=== PATIENT | male | born 2000 | race Caucasian/White ===

== ENCOUNTER → 2020-11-13 16:17 | Outpatient (CLI) | payer OTHER, SELFPAY ==
--- NOTE | 2020-11-13 16:18 | DI.MRI.S_ITS ---
PROCEDURE: MR SHOULDER LT WO CON INDICATIONS: PAIN IN LEFT SHOULDER TECHNIQUE: Noncontrast oblique coronal T2 fast spin echo with fat saturation, oblique sagittal T1 spin echo and T2 fast spin echo with fat saturation, axial T1 spin echo and T2 fast spin echo with fat saturation through the shoulder. COMPARISON: None. FINDINGS: Image quality: Excellent. Rotator cuff: Tendinosis and very low-grade articular surface partial-thickness tear involving distal supraspinatus at its insertion on the humeral head is seen. Distal infraspinatus and subscapularis are intact. Sagittal images demonstrate no muscle atrophy. Bones and bursae: There is marrow edema and cortical deformity involving posterior lateral humeral head suggestive of a Hill-Sachs fracture. No corresponding Bankart fracture is seen. No acromioclavicular joint degeneration. The acromion demonstrates conventional anatomy, without an os acromiale. No pathologic subacromial-subdeltoid or subcoracoid bursal fluid is present. Capsule and soft tissues: There is signal abnormality and contour irregularity involving anterior inferior labrum at 5 to 6 o'clock position suggestive of anterior-inferior labral tear. The long head of the biceps tendon demonstrates normal location and morphology. The rotator interval appears normal, without fibrosis. The coracohumeral ligament is normal in thickness. IMPRESSION: 1. Suggestion of acute to subacute appearing Hill-Sachs fracture involving humeral head. No Bankart fracture is noted. 2. Suggestion of anterior-inferior labral tear at 5 to 6 o'clock position consistent with a Bankart lesion. 3. Tendinosis and very low-grade articular surface partial-thickness tear involving distal supraspinatus at its insertion on the humeral head. No full-thickness rotator cuff tendon rupture. Dictated by: Finn Calderón M.D. on 11/14/2020 at 9:51 Approved by: Finn Calderón M.D. on 11/14/2020 at 9:54
== END ==
PROVIDERS: PCP Family Medicine; Referring Provider Physician Assistant; Visit Provider Physician Assistant
DX: M25.512 Pain in left shoulder (principal); S46.90 Unspecified injury of unspecified muscle, fascia and tendon at shoulder and upper arm level; W19.XXXD Unspecified fall, subsequent encounter
CPT/HCPCS: 73221